=== PATIENT | female | born 1945 | race Caucasian/White ===

== ENCOUNTER 2021-09-05 11:31 | Emergency (ER) | payer OTHER ==
[~2021-09-05] VITALS: Ht 167.6 cm; Wt 69.0 kg
[~2021-09-05 11:31] MED LIST: AZITHROMYCIN 2250 MG PO; CEFTIN 250 MG250 MG PO; COMBIVENT INH; NICOTINE TRANSD21 M1 TD; NORCO 5-325 TA1 EACH PO; PRILOSEC 20 MG20 MG PO; ZOCOR 20 MG TAB20 M1 PO; ZOFRAN4 MG PO
[2021-09-05] MEDS ORDERED: METHOCARBAMOL500 M2 PO (12:14)
[2021-09-05 14:20] LABS: CALCIUM 9.7 mg/dL (8.5-10.1); CREATININE 0.7 mg/dL (0.6-1.0)
[2021-09-05 14:23] LABS: POTASSIUM 5.3 mmol/L (3.5-5.1)
[2021-09-05 14:32] LABS: ALBUMIN 3.9 g/dL (3.4-5.0); TOTAL BILIRUBIN 0.7 mg/dL (0.2-1.0); TOTAL PROTEIN 7.5 g/dL (6.4-8.2)
[2021-09-05 14:35] LABS: ABSOLUTE NEUTROPHILS 6.2 thou/uL (1.4-8.2); EOSINOPHILS 1.3 % (0.0-3.0); HEMATOCRIT 38.7 % (37.0-47.0); HEMOGLOBIN 12.7 gm/dL (12.0-15.0); LYMPHOCYTES 10.8 % (24.0-44.0); MCHC 32.7 g/dL (28.0-37.0); MCV 91.6 fL (80.0-100.0); MONOCYTES 4.1 % (1.0-8.0); PLATELET COUNT 250 thou/uL (150-400); POLYS 82.8 % (36.0-66.0); RBC 4.23 mil/uL (4.20-5.00); RDW 15.8 % (10.5-14.5); WBC 7.5 thou/uL (4.0-11.0)
[2021-09-05] MEDS ORDERED: METHOCARBAMOL750 MG PO (17:05)
[2021-09-05 17:15] VITALS: BP 146/72
--- NOTE | 2021-09-06 10:55 | EKG ---
[place] [address] [facility] [place] [address] ELECTROCARDIOGRAM REPORT Name: SINCERE LACY [facility]: 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 : 1945 Requested By: Naomi Pal Order Number: [id number] MD: Cash Kearns Measurements Intervals [place] Rate: 89 P: 53 TN: 159 QRS: -27 QRSD: 93 T: 48 QT: 404 QTc: 492 Interpretive Statements Sinus rhythm Consider left ventricular hypertrophy Nonspecific T abnormalities, lateral leads Baseline wander in lead(s) II,III,aVF Compared to ECG 12/04/2010 14:15:46 T-wave abnormality now present Electronically Signed On 09-06-2021 10:55:26 PHYSICAL INSTRUCTOR by Cash Kearns [email or web address] <ELECTRONICALLY SIGNED> By: Cash Kearns MD 09/06/21 1055 [id number] Cash Kearns MD /EPI
== END 2021-09-05 17:15 | disposition home or self-care (01) ==
LOC: ER 11:31
PROVIDERS: Nurse Practitioner
DX: M54.2 Cervicalgia (principal); Z20.822 Contact with and (suspected) exposure to COVID-19; R11.2 Nausea with vomiting, unspecified; Z90.49 Acquired absence of other specified parts of digestive tract; Z90.89 Acquired absence of other organs; Z90.710 Acquired absence of both cervix and uterus; Z79.891 Long term (current) use of opiate analgesic; Z79.899 Other long term (current) drug therapy